=== PATIENT | female | born 1950 | race Hispanic/Latino ===

== ENCOUNTER 2018-01-07 19:41 | Emergency (ER) | payer BC, MEDICARE ==
[2018-01-07] MEDS ORDERED: FAMOTIDINE 20MG TAB 20 MG TAB ONE (20:19)
[2018-01-07] MEDS ORDERED: DIPHENHYDRAMINE HCL 25 MG CAPSULE ONE (20:19)
== END 2018-01-07 21:26 | disposition home or self-care (01) ==
LOC: EDH 19:41
DX: L50.9 Urticaria, unspecified (principal); E78.5 Hyperlipidemia, unspecified; I10 Essential (primary) hypertension; E11.9 Type 2 diabetes mellitus without complications
CPT/HCPCS: 99283; Q0163

== ENCOUNTER → 2022-07-17 | Outpatient (CLI) | payer MEDICARE | END | disposition home or self-care (01) | LOC: OIH 08:43 | PROVIDERS: ATTEND Internal Medicine Cardiovascular Disease | DX: I36.1 Nonrheumatic tricuspid (valve) insufficiency (principal); I11.9 Hypertensive heart disease without heart failure | CPT/HCPCS: 93306 ==